=== PATIENT | female | born 1955 | race Caucasian/White ===

== ENCOUNTER → 2017-02-16 | Outpatient (CLI) | payer BC | LOC: COL.RAD 13:32 | DX: M25.552 Pain in left hip (principal) | CPT/HCPCS: J3301; Q9967 ==

== ENCOUNTER → 2017-04-06 | Outpatient (CLI) | payer BC | LOC: COL.LAB 09:24 | DX: Z96.642 Presence of left artificial hip joint (principal) ==

== ENCOUNTER 2018-04-04 14:49 | Emergency (ER) | payer OTHER ==
[~2018-04-04] VITALS: Ht 170.2 cm; Wt 81.8 kg
[2018-04-04 14:52] VITALS: TEMP 99.1
[2018-04-04] MEDS ORDERED: TOPROL XL 50MG50 MG PO (16:23)
[2018-04-04] MEDS ORDERED: LEXAPRO 5MG5 MG PO (16:23)
[2018-04-04] MEDS ORDERED: PRINIVIL20 MG PO (16:23)
[2018-04-04 16:49] VITALS: BP 137/81; PULSE 63
== END 2018-04-04 17:07 | disposition home or self-care (01) ==
LOC: COL.ER 14:49
DX: S00.81XA Abrasion of other part of head, initial encounter (principal); S80.02XA Contusion of left knee, initial encounter; S80.01XA Contusion of right knee, initial encounter; S80.12XA Contusion of left lower leg, initial encounter; S80.11XA Contusion of right lower leg, initial encounter; R40.2412 Glasgow coma scale score 13-15, at arrival to emergency department; I10 Essential (primary) hypertension; V43.52XA Car driver injured in collision with other type car in traffic accident, initial encounter; Y93.I9 Activity, other involving external motion

== ENCOUNTER → 2018-11-04 | Outpatient (CLI) | payer BC ==
[~2018-11-04] MED LIST: LEXAPRO 5MG5 MG PO; PRINIVIL20 MG PO; TOPROL XL 50MG50 MG PO
== END ==
LOC: MC.RAD 11:36
DX: Z12.31 Encounter for screening mammogram for malignant neoplasm of breast (principal); Z98.82 Breast implant status

== ENCOUNTER 2018-12-09 09:59 | Outpatient (CLI) | payer BC ==
[~2018-12-09] VITALS: Ht 170.2 cm; Wt 83.6 kg
[2018-12-09] MEDS ORDERED: ZOCOR 40MG40 MG PO (10:07)
[2018-12-09] MEDS ORDERED: ATIVAN 0.50.5 MG/TAB PO (10:08)
[2018-12-09] MEDS ORDERED: NASALCROM5.2 MG/ACT NS (10:08)
[2018-12-09 10:32] VITALS: BP 132/79; PULSE 62; TEMP 98.3
[2018-12-09 10:53] LABS: HEMATOCRIT 39.2 % (37.0-47.0); HEMOGLOBIN 13.2 g/dl (12.5-16.0); MEAN CELL VOLUME 87 fl (80.0-100.0); MEAN CORPUSCULAR HEMOGLOBIN 29 pg (27.0-31.0); MEAN CORPUSCULAR HGB CONC 34 g/dl (33.0-37.0); MEAN PLATELET VOLUME 9.7 fl (7.4-10.4); PLATELET COUNT 206 K/mm3 (130-400); PROTHROMBIN TIME 11.3 SECONDS (9.7-12.8); RED BLOOD COUNT 4.52 M/mm3 (4.10-5.30); REDCELL DISTRIBUTION WIDTH-CV 13.2 % (11.5-14.5)
[2018-12-09 10:57] LABS: CALCIUM 9.2 mg/dL (8.4-10.2); CREATININE, serum 0.75 mg/dL (0.52-1.25)
[2018-12-09 11:20] VITALS: BP 121/76; PULSE 62; TEMP 98.4
--- NOTE | 2018-12-09 13:48 | NUR ---
Discharge instructions given. INT to right hand discontinued intact.
[2018-12-09 13:50] VITALS: BP 129/79; PULSE 65; TEMP 98.4
--- NOTE | 2018-12-09 14:01 | NUR ---
Transferred to private car by natanael
== END 2018-12-09 14:01 | disposition home or self-care (01) ==
LOC: COL.RAD 09:59
PROVIDERS: Internal Medicine Cardiovascular Disease
DX: I34.0 Nonrheumatic mitral (valve) insufficiency (principal); I51.7 Cardiomegaly; I51.89 Other ill-defined heart diseases; I36.1 Nonrheumatic tricuspid (valve) insufficiency; I70.0 Atherosclerosis of aorta
CPT/HCPCS: J2704

== ENCOUNTER 2018-12-13 10:02 | Day surgery (SDC) | payer BC ==
[~2018-12-13] VITALS: Ht 170.3 cm; Wt 83.0 kg
[2018-12-13] VITALS (13 sets, daily range): BP systolic 109–144; BP diastolic 67–90; PULSE 61–87; TEMP 98.4–98.6
[~2018-12-13 10:02] MED LIST changes: +ATIVAN 0.50.5 MG/TAB PO; +NASALCROM5.2 MG/ACT NS; +ZOCOR 40MG40 MG PO
[2018-12-13 10:39] LABS: HEMATOCRIT 41.7 % (37.0-47.0); MEAN CELL VOLUME 87 fl (80.0-100.0); MEAN CORPUSCULAR HEMOGLOBIN 29 pg (27.0-31.0); MEAN CORPUSCULAR HGB CONC 34 g/dl (33.0-37.0); MEAN PLATELET VOLUME 9.6 fl (7.4-10.4); PLATELET COUNT 228 K/mm3 (130-400); REDCELL DISTRIBUTION WIDTH-CV 13.2 % (11.5-14.5)
[2018-12-13] MEDS ORDERED: MULTI VITAMINS1 TAB PO (10:45)
[2018-12-13] MEDS ORDERED: VITAMINC1000TA PO (10:45)
[2018-12-13] MEDS ORDERED: VITAMIN D 400400 IU PO (10:46)
[2018-12-13 10:51] LABS: PROTHROMBIN TIME 11.8 SECONDS (9.7-12.8)
[2018-12-13 10:56] LABS: CALCIUM 9.6 mg/dL (8.4-10.2); CREATININE, serum 0.7 mg/dL (0.52-1.25); POTASSIUM 3.8 mmol/L (3.4-5.0)
--- NOTE | 2018-12-13 14:35 | NUR ---
Pt returned to [facility] 16 per bed s/p heart cath. Pt resting well, at bedside.
--- NOTE | 2018-12-13 16:30 | NUR ---
Report to Cedric Kruger RN who assumed care at this time.
--- NOTE | 2018-12-13 19:48 | NUR ---
PT VSS AND [id number] POST CARDIAC CATH. RIGHT FEMORAL SITE C/D/I AND SOFT ON PALPATION WITH PULSES EASILY PALPABLE. TOLERATED FOOD AND FLUID PO WITHOUT ANY DIFFICULTY. AMBULATED TWICE AROUND UNIT AND URINATED TWICE. NO CHANGES POST AMBULATION. DISCHARGE INSTRUCTIONS REVIEWED AND SIGNED. PT 20G REMOVED FROM LEFT FA.PT SAFELY WHEELED OUT VIA WHEELCHAIR WITH AT SIDE.
== END 2018-12-13 20:02 | disposition home or self-care (01) ==
LOC: COL.CAR 10:02
PROVIDERS: Internal Medicine Cardiovascular Disease
DX: I25.10 Atherosclerotic heart disease of native coronary artery without angina pectoris (principal); R94.39 Abnormal result of other cardiovascular function study; I34.0 Nonrheumatic mitral (valve) insufficiency; I42.9 Cardiomyopathy, unspecified; I10 Essential (primary) hypertension; E78.5 Hyperlipidemia, unspecified; Z90.710 Acquired absence of both cervix and uterus; Z96.652 Presence of left artificial knee joint; Z82.49 Family history of ischemic heart disease and other diseases of the circulatory system
CPT/HCPCS: C1760; C1769; C1887; C1894; J1200; J1644; J2250; J3010; Q9967

== ENCOUNTER 2019-04-16 12:11 | Outpatient (RCR) | payer BC ==
[~2019-04-16 12:11] MED LIST changes: +MULTI VITAMINS1 TAB PO; +VITAMIN D 400400 IU PO; +VITAMINC1000TA PO
== END 2019-04-20 16:10 | disposition home or self-care (01) ==
LOC: COL.CR 12:11
DX: Z48.812 Encounter for surgical aftercare following surgery on the circulatory system (principal); I34.0 Nonrheumatic mitral (valve) insufficiency

== ENCOUNTER → 2021-02-11 | Outpatient (CLI) | payer MEDICARE | LOC: MC.RAD 10-28 08:45 | DX: Z12.31 Encounter for screening mammogram for malignant neoplasm of breast (principal) ==